=== PATIENT | female | born 1965 | race Caucasian/White ===

== ENCOUNTER → 2024-03-15 17:56 | Outpatient (REF) | payer BC, SELFPAY | LOC: WDC 17:56 | PROVIDERS: ATTENDING PHYSICIAN Obstetrics & Gynecology; FAMILY PHYSICIAN Family Medicine | DX: Z12.31 Encounter for screening mammogram for malignant neoplasm of breast (principal) | CPT/HCPCS: 77063; 77067 ==

== ENCOUNTER → 2024-10-12 16:09 | Outpatient (REF) | payer BC, SELFPAY | LOC: RAD 16:09 | PROVIDERS: ATTENDING PHYSICIAN Family Medicine | DX: E78.5 Hyperlipidemia, unspecified (principal); Z13.6 Encounter for screening for cardiovascular disorders | CPT/HCPCS: 75571 ==

== ENCOUNTER → 2025-04-05 13:34 | Outpatient (REF) | payer BC, SELFPAY | LOC: WDC 13:34 | PROVIDERS: ATTENDING PHYSICIAN Obstetrics & Gynecology; FAMILY PHYSICIAN Family Medicine | DX: Z12.31 Encounter for screening mammogram for malignant neoplasm of breast (principal) | CPT/HCPCS: 77063; 77067 ==

== ENCOUNTER 2025-08-03 06:05 | Day surgery (SDC) | payer OTHER, SELFPAY ==
[2025-07-15 09:08] LABS: Hematocrit 40.2 % (37.0-47.0); Hemoglobin 13.6 g/dL (12.0-16.0); Mean Corp Hgb Conc. 33.8 g/dL (33.0-37.0); Mean Corpuscular Volume 90.7 fL (81.0-99.0); Platelet Count 289 10^3/uL (130-400); Red Cell Dist. Width 12.0 % (11.5-14.5)
[2025-07-15 09:42] LABS: Blood Urea Nitrogen 16 mg/dl (7-17); Calcium 9.8 mg/dl (8.4-10.2); Carbon Dioxide 29 mmol/L (22-30); Chloride 104 mmol/L (98-107); Glucose 91 mg/dl (70-99); Potassium 4.3 mmol/L (3.5-5.1); Sodium 140 mmol/L (135-145); eGFR > 60.00
[2025-07-15 13:56] VITALS: BMI 21.9
--- NOTE | 2025-07-15 15:08 | PTCARENOTE ---
Abnormal EKG reviewed by . No further action requested.
[2025-08-03] VITALS (11 sets, daily range): BP systolic 122–180; BP diastolic 65–100; BMI 21.9
[2025-08-03] MEDS: NORMOSOL-R/PLASMALYTE-A 1000 IV (07:39)
[2025-08-03] MEDS: DILAUDID 0.25 MG IV (11:21)
[2025-08-03] MEDS: ZOFRAN 4 MG IV (13:32)
== END 2025-08-03 15:39 | disposition home or self-care (01) ==
LOC: SDS 06:05
PROVIDERS: ATTENDING PHYSICIAN Obstetrics & Gynecology; FAMILY PHYSICIAN Family Medicine
DX: N81.3 Complete uterovaginal prolapse (principal); N39.3 Stress incontinence (female) (male); N36.41 Hypermobility of urethra; D25.9 Leiomyoma of uterus, unspecified
CPT/HCPCS: 57425; 58571; 57250; 57288; 80048; 85027; 86850; 86900; 86901; 88305; 93005; C1763; C1771

== ENCOUNTER 2025-08-08 18:17 | Emergency (ER) | payer OTHER, SELFPAY ==
[2025-08-08 18:20] VITALS: BP 180/101
--- NOTE | 2025-08-08 19:07 | ED.GENMED ---
History of Present Illness
General
Chief Complaint: Post Operative Problem(s)
Source: patient and spouse
Exam Limitations: none
Time Seen by Provider: 08/08/25 18:35
Nursing documentation reviewed up to this point in time: agreed with
History of Present Illness
History of Present Illness:
Patient presents to ED secondary to inability to urinate along with pelvic pressure starting this afternoon. Patient's history is significant for recent urological procedure, including hysterectomy and bladder sling. Patient had her Goyal catheter
removed in the office this afternoon. Afterwards, patient was able to urinate on her own on multiple occasions, until she was unable to urinate with development of pelvic pressure. Denies fever or chills. Denies nausea or vomiting.
Review of Systems
Review of Systems
Allergies reviewed?: Yes
All Other Systems: ROS reviewed and negative except as documented in HPI and ROS
Constitutional: Reports no symptoms; Denies fever or chills
ABD/GI: Reports abdominal pain; Denies nausea or vomiting
: Reports difficulty voiding
Musculoskeletal: Reports no symptoms
Skin: Reports no symptoms
Neurological: Reports no symptoms
Phy Exam
Physical Exam
Physical Exam:
Physical Exam
General: mild painful distress, not acutely ill. afebrile
Head: nc/at. eomi
Neck: supple. no meningeal signs.
Abdomen: normal bowel sounds. not tender. punctured, laparoscopic incisions are noted over mid abdomen, without surrounding erythema or swelling.
Neuro: alert and oriented x 3. no focal neurological deficits
Skin: no rash
Psychiatric: well kept. interactive and cooperative
Extremities: no edema. no calf tenderness.
Course
Orders/Labs/Results
Orders:
Orders
08/08/25 19:04
Bladder Scan- Treatment ONCE
Goyal Placement- Treatment ONCE
Reason for insertion: Acute Retention
08/08/25 19:44
Urinalysis Reflex To Culture Urgent
Date Specimen was Collected: 08/08/25
Time Specimen was Collected: 19:09
Urine Microscopic Reflex Cult Urgent
Urine Culture Urgent
LEAH Source: U
Specimen Description:
Date Specimen was Collected: 08/08/25
Time Specimen was Collected: 19:09
08/08/25 19:45
Oxycodone/Acetaminophen [Percocet 5/325] 1 tablet PO NOW STA
08/08/25 20:14
Nitrofurantoin Monohydrate [Macrobid] 100 mg PO NOW STA
Abnormal Lab Results
08/08/25
19:44
Ur Occult Blood Reflex 1+ A
(Negative)
Urine Nitrite (Reflex) Positive A
(Negative)
Urine RBC 3-6 A /HPF
(0-2)
Urine Bacteria (Reflex) Few A
(Negative)
Urine Albumin (Reflex) 1+ A
(Neg - Trace)
Vital Signs
Initial and Last Documented VS:
Initial Vital Signs
Temp Pulse Resp BP Pulse Ox
98.9 F 81 20 180/101 97
08/08/25 18:20 08/08/25 18:20 08/08/25 18:20 08/08/25 18:20 08/08/25 18:20
Last Documented Vital Signs
Temp Pulse Resp BP Pulse Ox
98.9 F 81 20 155/84 97
08/08/25 18:20 08/08/25 18:20 08/08/25 18:20 08/08/25 20:54 08/08/25 20:54
MDM/Problems Addressed
MDM/Problems Addressed:
Bladder scan: > 1 L of urine noted. Goyal catheter inserted with relief of symptoms.
Urinalysis results reviewed and discussed with on-call physician, Dr. Lovell. Recommends that patient to be started on Macrobid 100 mg daily prophylactically, until reevaluation in the office. Urology office will call patient in the morning to
provide appointment. Patient otherwise is afebrile, hemodynamically stable, and appears comfortable, at time of discharge, to the care of her spouse.
*Pulse Oximetry
SaO2: 97
Oxygen Mode of Delivery: Room air
Patient hypoxic: no
*Critical Care Note
Total Time (30-74mins, 75-104mins- exclusive of procedures): Not Applicable
ED Attending Note
-
Portions of this chart may have been created with voice recognition software.� Occasional wrong word or��sound alike� substitutions may have occurred due to the inherent limitations of voice recognition software.
Discharge Plan
Departure
Patient Disposition: Home (Routine Discharge)
Date of Disposition: 08/08/25
Time of Disposition: 20:15
Patient with high blood pressure during this ER visit?: Yes
Condition: Good
Discharge Problem:
Acute urinary retention
Instructions: Urinary retention (DC), How to care for a urinary catheter
Prescriptions:
New
nitrofurantoin monohyd/m-cryst [Macrobid] 100 mg capsule
100 mg PO DAILY 14 Days Qty: 14 0RF
No Action
PreserVision AREDS
1 dose PO BID
famotidine [Pepcid] 40 mg Tablet
40 mg PO DAILY PRN (Reason: acid reflux)
ibuprofen [Motrin] 400 mg Tablet
400 mg PO ONCE PRN (Reason: pain)
azelaic acid 15 % Gel
1 applic TOPICAL DAILY
sulfacetamide sodium-sulfur 9.8-4.8 % Cleanser
1 applic TOPICAL DAILY
ivermectin-metronidazole
1 dose topical DAILY
methylprednisolone 4 mg Tablet
4 mg PO .TAPER
Rx Instructions:
PER PT: RX RECEIVED ON 07/30 FOR METHYLPREDNISOLONE TAPER
07/30: (6TABS= 24MG)
07/31: (5TABS =20MG)
08/01: (3TABS=12MG)
08/02: (2TABS=8MG)
Referrals:
Milton Thomas DO [Family Provider, Family Practice]
Kamran Lovell MD [Active, Urology]
Activity Restrictions/Additional Instructions:
As discussed, please follow-up with your urologist for continual evaluation and treatment. Your prescription has been sent electronically to [facility] pharmacy in [place].
Interventions
Interventions:
*Risk Screen - Suicide Last Done: 08/08/25 18:20
*General Assessment Last Done: 08/08/25 18:20
*Neglect/Abuse Screening Last Done: 08/08/25 18:20
*ED- Fall Risk Assessment Last Done: 08/08/25 21:16
*ED COVID-19 Vaccine History Last Done: 08/08/25 21:16
*ED Influenza Vaccine History Last Done: 08/08/25 21:16
*Nursing Disposition Last Done: 08/08/25 21:16
ED-Skin Assessment Last Done: 08/08/25 21:16
Discharge Date and Time
Discharge Date/Time: 08/08/25 21:19
Print Language: FIJIAN
[2025-08-08 19:51] VITALS: BP 147/77
[2025-08-08] MEDS: PERCOCET 5/325 1 TABLET PO (19:53)
[2025-08-08 19:56] LABS: Urine Character Clear (Clear)
[2025-08-08 20:00] VITALS: BP 156/77
[2025-08-08 20:03] LABS: Urine Squamous Cell 0-2 /LPF (Few)
[2025-08-08 20:04] LABS: Urine White Cell 0-2 /HPF (0-5)
[2025-08-08] MEDS: MACROBID 100 MG PO (20:28)
[2025-08-08 20:54] VITALS: BP 155/84
== END 2025-08-08 21:19 | disposition home or self-care (01) ==
LOC: EMR 18:17
PROVIDERS: EMERGENCY PHYSICIAN Emergency Medicine; FAMILY PHYSICIAN Family Medicine
DX: R33.9 Retention of urine, unspecified (principal); Z90.710 Acquired absence of both cervix and uterus
CPT/HCPCS: 99282; 51702; 81003; 81015; 87086